=== PATIENT | female | born 1965 | race Caucasian/White ===

== ENCOUNTER → 2019-12-21 | Outpatient (CLI) | payer OTHER | LOC: LAB 10:48 | PROVIDERS: ATTEND Nurse Practitioner | DX: Z20.828 Contact with and (suspected) exposure to other viral communicable diseases (principal) ==

== ENCOUNTER → 2020-04-17 | Outpatient (CLI) | payer OTHER | LOC: RAD 09:41 | PROVIDERS: ATTEND Nurse Practitioner | DX: M54.2 Cervicalgia (principal) ==